=== PATIENT | male | born 1945 | race Hispanic/Latino ===

== ENCOUNTER → 2017-06-20 | Outpatient (CLI) | payer MEDICARE, OTHER ==
--- NOTE | 2017-06-20 14:19 | Diagnostic Imaging Report ---
PROCEDURE: X-RAY CHEST, TWO VIEWS COMPARISON: Patients [facility], , CHEST 2 VIEWS, 01/14/2013, 14:31. INDICATIONS: COUGH FINDINGS: LUNGS: Well inflated with flattening of diaphragms. No mass or infiltrate. No interstitial thickening. Pulmonary veins are prominent but stable. PLEURA: No effusions or pneumothorax. HEART \T\ MEDIASTINUM: Stable cardiomegaly and aortic ectasia. BONES \T\ SOFT TISSUES: Degenerative changes of the spine are stable. There are no focal osseous lesions. CONCLUSION: Stable cardiomegaly and pulmonary venous hypertension. Stable pulmonary hyperinflation. No acute cardiopulmonary process. Dictated by: Shanae Li M.D. on 06/20/2017 at 14:20 Electronically approved by: Shanae Li M.D. on 06/20/2017 at 14:20
== END ==
LOC: RAD 13:35
PROVIDERS: ATTEND Family Medicine
DX: J40 Bronchitis, not specified as acute or chronic (principal)
CPT/HCPCS: 71046

== ENCOUNTER 2024-06-08 02:17 | Emergency (ER) | payer MEDICARE, OTHER ==
[~2024-06-08] VITALS: Ht 165.1 cm; Wt 110.2 kg
[2024-06-08 02:34] VITALS: TEMP 97.6
[2024-06-08] MEDS: FUROSEMIDE INJ 10 MG/ML 4 ML VIAL IV ONE (02:36)
[2024-06-08] MEDS: ALBUTEROL/IPRATROPIUM 3 ML NEB NEB ONE (02:48)
[2024-06-08 02:58] LABS: CORONAVIRUS COVID-19 AG NEGATIVE (NEGATIVE); INFLUENZA A AG NEGATIVE (NEGATIVE); INFLUENZA B AG NEGATIVE (NEGATIVE)
[2024-06-08 03:07] LABS: HEMATOCRIT 45.9 % (38.2-49.6); HEMOGLOBIN 14.8 g/dL (14.0-18.0); MEAN CORPUSCULAR HEMOGLOBIN 30.3 pg (28-32); MEAN CORPUSCULAR HGB CONC 32.2 g/dL (31-35); MEAN CORPUSCULAR VOLUME 94.1 fL (81-99); PLATELET COUNT 168 x10e3/uL (140-360); RED BLOOD COUNT 4.88 x10e6/uL (4.3-5.7); RED CELL DISTRIBUTION WIDTH 15.9 % (11.7-14.4); WHITE BLOOD COUNT 8.22 x10e3/uL (4.8-10.8)
[2024-06-08 03:08] LABS: BASOPHILS # (AUTO) 0.1 (0.0-0.1); BASOPHILS % 0.6 % (0.0-1.0); EOSINOPHILS # (AUTO) 0.4 (0.0-0.4); EOSINOPHILS % 4.3 % (0.0-6.0); LYMPHOCYTES # (AUTO) 1.9 (1.0-3.2); LYMPHOCYTES % 22.6 % (18.0-39.1); MONOCYTES # (AUTO) 0.6 (0.2-0.8); MONOCYTES % 7.1 % (4.4-11.3); NEUTROPHILS # (AUTO) 5.3 (2.1-6.9); NEUTROPHILS % 64.9 % (38.7-80.0)
[2024-06-08 03:09] LABS: ANION GAP 20.1 mmol/L (8-16); BILIRUBIN,TOTAL 0.9 mg/dL (0.2-1.2); CALCIUM 8.7 mg/dL (8.4-10.2); CREATININE, SERUM 1.15 mg/dL (0.72-1.25); POTASSIUM 4.1 mmol/L (3.5-5.1); TOTAL PROTEIN 6.9 g/dL (6.5-8.1)
[2024-06-08 03:10] LABS: ALBUMIN 3.5 g/dL (3.5-5.0)
[2024-06-08 03:15] LABS: ABG HCO3 25 mmol/L (22-26); ABG PCO2 50 mmHg (35-45); ABG PH 7.31 (7.35-7.45); ABG PO2 341 mmHg (80-105); ABG TCO2 26
[2024-06-08 03:19] LABS: CLARITY,URINE CLOUDY (CLEAR); COLOR,URINE YELLOW (YELLOW)
[2024-06-08 03:20] LABS: BILIRUBIN,URINE NEGATIVE (NEGATIVE); GLUCOSE, URINE 1+ (NEGATIVE); KETONES,URINE NEGATIVE (NEGATIVE); LEUKOCYTE ESTERASE ,URINE NEGATIVE (NEGATIVE); NITRITE,URINE NEGATIVE (NEGATIVE); PH,URINE 6.5 (5 - 7); PROTEIN,URINE DIPSTICK >=300 (NEGATIVE); URINE UROBILINOGEN 1 mg/dL (0.2 - 1)
[2024-06-08 03:33] LABS: BACTERIA,URINE MANY /HPF; EPITHELIAL CELLS,URINE FEW /LPF; RBC,URINE 21-50 /HPF (0-5); WBC,URINE (MAN) >50 /HPF (0-5)
[2024-06-08 04:04] VITALS: BP 111/67; PULSE 71; RESP 20; TEMP 98.2
[2024-06-08 05:05] VITALS: PULSE 60; RESP 17; O2SAT 98
== END 2024-06-08 05:48 | disposition other institution (70) ==
LOC: ER 02:20
DX: J96.90 Respiratory failure, unspecified, unspecified whether with hypoxia or hypercapnia (principal); E87.20 Acidosis, unspecified; I50.9 Heart failure, unspecified; E87.70 Fluid overload, unspecified; J81.1 Chronic pulmonary edema; I10 Essential (primary) hypertension; E11.65 Type 2 diabetes mellitus with hyperglycemia; R94.31 Abnormal electrocardiogram [ECG] [EKG]
CPT/HCPCS: 36415; 36600; 51702; 71045; 80053; 81001; 82805; 83605; 83880; 84484; 85025; 87040; 87428; 93005; 94002; 94640; 94660 ×2; 99285; J0696; J1938; 51700